=== PATIENT | female | born 1995 | race Caucasian/White ===

== ENCOUNTER 2019-05-18 16:47 | Emergency (ER) | payer MEDICAID ==
[~2019-05-18] VITALS: Ht 160 cm; Wt 75.0 kg
[2019-05-18 17:11] VITALS: BP 128/99
== END 2019-05-18 22:15 | disposition left against medical advice (07) ==
LOC: ER 16:47
DX: Z53.21 Procedure and treatment not carried out due to patient leaving prior to being seen by health care provider (principal)

== ENCOUNTER 2024-11-30 13:03 | Emergency (ER) | payer MEDICAID, OTHER ==
[~2024-11-30] VITALS: Ht 170.2 cm; Wt 68.0 kg
[2024-11-30 13:05] VITALS: BP 120/97; PULSE 113; RESP 16; TEMP 37; O2SAT 100
[2024-11-30 16:49] LABS: BASOPHILS % 0.6 % (0.0-2.0); EOSINOPHILS % 4.6 % (0.0-5.0); HEMATOCRIT. 38.7 % (36.0-48.0); HEMOGLOBIN. 12.8 g/dL (12.0-16.0); LYMPHOCYTES % 33.1 % (20.0-50.0); MEAN CORPUSCULAR HEMOGLOBIN 29.2 pg (28.0-32.0); MEAN CORPUSCULAR HGB CONC 33.2 g/dL (31.0-37.0); MEAN CORPUSCULAR VOLUME 88.2 fL (81.0-99.0); MONOCYTES % 5.7 % (2.0-8.0); PLATELET 294 x1000/uL (130-400); RED BLOOD CELL COUNT 4.39 mill/uL (4.2-5.4); RED CELL DISTRIBUTION WIDTH 13.3 % (11.6-14.6); WHITE BLOOD COUNT 10.1 x1000/uL (4.5-11.0)
[2024-11-30 16:54] LABS: CARBON DIOXIDE 24 mEq/L (21-32); CHLORIDE 109 mEq/L (98-107); POTASSIUM 4.2 mEq/L (3.5-5.1); SODIUM 141 mEq/L (136-145)
[2024-11-30 16:55] LABS: CALCIUM 8.9 mg/dL (8.7-10.4)
[2024-11-30 16:56] LABS: HCG SCREEN NEGATIVE
[2024-11-30 17:00] LABS: CREATININE 0.8 mg/dL (0.6-1.0); ETHANOL BLOOD 28 mg/dL (<10); GLUCOSE 95 mg/dL (70-105); UREA NITROGEN BLOOD 10 mg/dL (9-23)
== END 2024-11-30 18:26 | disposition home or self-care (01) ==
LOC: ER 13:03
DX: R56.9 Unspecified convulsions (principal); Z88.6 Allergy status to analgesic agent
CPT/HCPCS: 36415; 73610; 80048; 80320; 84703; 85025; 99284; G0480